=== PATIENT | female | born 1950 | race Caucasian/White ===

== ENCOUNTER 2021-11-12 13:32 | Emergency (ER) | payer OTHER, MEDICAID | END 2021-11-12 14:48 | disposition home or self-care (01) | LOC: CSHERS 13:32 | DX: B37.0 Candidal stomatitis (principal); E11.9 Type 2 diabetes mellitus without complications; I11.0 Hypertensive heart disease with heart failure; I50.9 Heart failure, unspecified | CPT/HCPCS: 99282 ==

== ENCOUNTER 2024-12-11 12:53 | Inpatient (IN) | payer OTHER, MEDICAID ==
[~2024-12-11 12:53] MED LIST: Iopamidol 300 61% 100 ML VIAL FS ONE
[2024-12-11 13:51] LABS: ALT (SGPT) 13 U/L (Less than 34); AST (SGOT) 25 U/L (11-34); Albumin 3.6 g/dL (3.1-4.5); Alkaline Phosphatase 92 U/L (40-110); Anion Gap 13 mmol/L (10-20); BUN (Urea Nitrogen) 26 mg/dL (9.8-20.1); Bilirubin, Total 0.4 mg/dL (0.3-1.2); Calc. Creatinine Clearance 0 mL/min (70-130); Calcium 9.9 mg/dL (7.8-10.44); Carbon Dioxide 25 mmol/L (23-31); Chloride 107 mmol/L (98-107); Globulin 4.1 g/dL (2.4-3.5); Glucose 113 mg/dL (83-110); Magnesium 2.2 mg/dL (1.6-2.6); Potassium 4.8 mmol/L (3.5-5.1); Sodium 140 mmol/L (136-145)
[2024-12-11 13:54] LABS: Troponin I 0.011 ng/mL (< 0.028)
[2024-12-11 13:57] LABS: #Basophils Less than 0.03 10x3/uL (0.0-0.2); #Eosinophils Less than 0.03 10x3/uL (0.0-0.5); #Monocytes 0.32 10x3/uL (0.0-1.1); #Neutrophils 3.93 10x3/uL (1.5-8.4); %Basophils 0.2 % (0.0-2.0); %Eosinophils 0.2 % (0.0-6.0); %Lymphocytes 13.2 % (18.0-47.0); %Monocytes 6.5 % (0.0-10.0); %Neutrophils 79.7 % (40.0-75.0); Hematocrit 42.2 % (34.9-44.5); Hemoglobin 12.9 g/dL (12.0-15.5); Mean Corpuscular Hemoglobin 26.8 pg (27.0-33.0); Mean Corpuscular Volume 87.6 fL (81.6-98.3); Platelet Count 199 10x3/uL (150-450); Red Blood Cell (RBC) Count 4.82 10x6/uL (3.90-5.03); White Blood Cell (WBC) Count 4.93 10x3/uL (3.5-10.5)
[2024-12-11 14:54] LABS: Glucose, Urine (Dipstick) >=1000 mg/dL (Negative); Leukocyte Negative (Negative); Protein, Urine (Dipstick) 15 mg/dl (Neg-Trace); Specific Gravity, Urine 1.010 (1.005-1.030)
[2024-12-11 15:08] LABS: Bacteria/HPF Rare-Few HPF (None Seen); CAUTI Indications for Culture Pelvic or flank pain; RBC/HPF 0-3 HPF (0-3); WBC/HPF 0-3 HPF (0-3)
[2024-12-11 15:09] LABS: Urine Culture Reflex No No
[2024-12-11] MEDS ORDERED: Calcium Carbonate 500 MG ChewTAB PO PRN (15:51)
[2024-12-11] MEDS ORDERED: Senokot S 8.6-50 MG TAB PO PRN (15:51)
[2024-12-11] MEDS ORDERED: Melatonin 3 MG TAB PO PRN (15:51)
[2024-12-11] MEDS ORDERED: Ondansetron PF 4 MG/2 ML Vial IVP PRN (15:51)
[2024-12-11] MEDS ORDERED: Nitroglycerin 0.4 MG TAB (25 Tab Bottle) SL PRN ×2 (15:54→16:59)
[2024-12-11] MEDS ORDERED: Aspirin 325 MG TAB PO SCH (17:00)
[2024-12-11] MEDS ORDERED: Glucagon 1 MG/ML KIT IM PRN (17:12)
[2024-12-11] MEDS ORDERED: Dextrose 50% Abboject 50 ML SYRINGE SLOW IVP PRN (17:12)
[2024-12-11 18:06] VITALS: BMI 40.5
[2024-12-11] MEDS: Carvedilol 6.25 MG TAB PO SCH (18:18)
[2024-12-11 19:19] LABS: Troponin I Less than 0.010 ng/mL (< 0.028)
[2024-12-11] MEDS: Apixaban 5 MG TAB PO SCH (20:52)
[2024-12-11 22:12] LABS: Troponin I 0.014 ng/mL (< 0.028)
[2024-12-12 03:58] LABS: #Basophils Less than 0.03 10x3/uL (0.0-0.2); #Eosinophils 0.04 10x3/uL (0.0-0.5); #Monocytes 0.78 10x3/uL (0.0-1.1); #Neutrophils 6.04 10x3/uL (1.5-8.4); %Basophils 0.2 % (0.0-2.0); %Eosinophils 0.5 % (0.0-6.0); %Lymphocytes 16.7 % (18.0-47.0); %Monocytes 9.4 % (0.0-10.0); %Neutrophils 72.8 % (40.0-75.0); Hematocrit 41.4 % (34.9-44.5); Hemoglobin 12.4 g/dL (12.0-15.5); Mean Corpuscular Hemoglobin 26.2 pg (27.0-33.0); Mean Corpuscular Volume 87.5 fL (81.6-98.3); Platelet Count 195 10x3/uL (150-450); Red Blood Cell (RBC) Count 4.73 10x6/uL (3.90-5.03); White Blood Cell (WBC) Count 8.30 10x3/uL (3.5-10.5)
[2024-12-12 04:17] LABS: Anion Gap 13 mmol/L (10-20); BUN (Urea Nitrogen) 22 mg/dL (9.8-20.1); Calc. Creatinine Clearance 67 mL/min (70-130); Calcium 9.7 mg/dL (7.8-10.44); Carbon Dioxide 25 mmol/L (23-31); Cardiac Risk 3.2 (Less than 4.5); Chloride 106 mmol/L (98-107); Cholesterol 193 mg/dl (< 200 Desired); Glucose 88 mg/dL (83-110); HDL Cholesterol 60 mg/dL (>60 Neg Risk); LDL Cholesterol, Calculated 123 mg/dL; Potassium 4.5 mmol/L (3.5-5.1); Sodium 139 mmol/L (136-145); Triglycerides 50 mg/dL (Less than 150)
[2024-12-12] MEDS: Pantoprazole 40 MG DR.TAB PO SCH (08:55)
[2024-12-12] MEDS: Sertraline 100 MG TAB PO SCH (08:56)
[2024-12-12] MEDS: Carvedilol 12.5 MG TAB PO SCH (08:56)
[2024-12-12] MEDS: Aspirin Chewable 81 MG TAB PO SCH (08:56)
[2024-12-12] MEDS ORDERED: Nitroglycerin 0.1mg/Hour PATCH TD SCH (09:00)
[2024-12-12] MEDS: PNEUMOC 20-VAL CONJ-DIP CRM/PF 0.5 ML SYRINGE IM ONE (12:41)
[2024-12-13] MEDS: Acetaminophen 325 MG TAB PO PRN (08:18)
[2024-12-13 09:50] LABS: Anion Gap 11 mmol/L (10-20); BUN (Urea Nitrogen) 22 mg/dL (9.8-20.1); Calc. Creatinine Clearance 66 mL/min (70-130); Calcium 9.9 mg/dL (7.8-10.44); Carbon Dioxide 25 mmol/L (23-31); Chloride 105 mmol/L (98-107); Glucose 85 mg/dL (83-110); Magnesium 2.2 mg/dL (1.6-2.6); Potassium 4.0 mmol/L (3.5-5.1); Sodium 137 mmol/L (136-145)
[2024-12-14 13:29] VITALS: BP 128/76; TEMP 98
== END 2024-12-14 14:11 | disposition home or self-care (01) | DRG 69 ==
LOC: CSHERS 12:53 → CSHERHOLD 15:48 → CSHTELE 18:03 → OBSVTOIN 12-13 15:52
PROVIDERS: ADMIT Hospitalist; ATTEND Hospitalist
PROC: 4B02XSZ Measurement of Cardiac Pacemaker, External Approach (ICD-10-PCS; principal; 2024-12-13)
DX: G45.0 Vertebro-basilar artery syndrome (principal); I13.0 Hypertensive heart and chronic kidney disease with heart failure and stage 1 through stage 4 chronic kidney disease, or unspecified chronic kidney disease; I50.22 Chronic systolic (congestive) heart failure; I48.20 Chronic atrial fibrillation, unspecified; Z88.0 Allergy status to penicillin; Z88.2 Allergy status to sulfonamides; E11.22 Type 2 diabetes mellitus with diabetic chronic kidney disease; I25.10 Atherosclerotic heart disease of native coronary artery without angina pectoris; Z88.8 Allergy status to other drugs, medicaments and biological substances; Z95.0 Presence of cardiac pacemaker; E78.5 Hyperlipidemia, unspecified; M19.90 Unspecified osteoarthritis, unspecified site; N18.32 Chronic kidney disease, stage 3b; Z90.49 Acquired absence of other specified parts of digestive tract; Z90.710 Acquired absence of both cervix and uterus; Z98.890 Other specified postprocedural states; R29.6 Repeated falls; E11.40 Type 2 diabetes mellitus with diabetic neuropathy, unspecified; F41.1 Generalized anxiety disorder; F32.A Depression, unspecified; Z79.899 Other long term (current) drug therapy; Z79.82 Long term (current) use of aspirin; Z88.5 Allergy status to narcotic agent; I34.0 Nonrheumatic mitral (valve) insufficiency; Z79.01 Long term (current) use of anticoagulants; F41.9 Anxiety disorder, unspecified; G89.4 Chronic pain syndrome; Z95.5 Presence of coronary angioplasty implant and graft; M54.2 Cervicalgia
CPT/HCPCS: 36415; 36416; 70496; 70498; 71045; 80048; 80053; 80061; 81001; 83036; 83735; 83880; 84484; 85025; 85379; 93005; 93306; 94760; G0378; Q9967